=== PATIENT | female | born 1985 | race Caucasian/White ===

== ENCOUNTER 2018-07-28 08:53 | Day surgery (SDC) | payer OTHER ==
[2018-07-28] MEDS ORDERED: Propofol 10 mg/ml Inj (20 ML) ONE ×2 (10:48→10:57)
--- NOTE | 2018-07-28 10:50 | CP.SDSHP ---
Same Day Surgery H & P - History Proposed Procedure: EGD Pre-Op Diagnosis: SEE NOTES - Previous Medical/Surgical History Misc: Other Pain: 4.Moderate Pain - Allergies Allergies: Allergies No Known Allergies Allergy (Verified 07/28/18 09:39) - Physical Exam General Appearance: N Vital Signs: Vital Signs 07/28/18 09:30 Temperature 98.9 F Pulse Rate 70 Respiratory 19 Rate Blood Pressure 123/65 O2 Sat by Pulse 100 Oximetry Mental Status: Alert & Oriented x3 Neuro: WNL Heart: WNL Lungs: WNL GI: Other - {Optional Preform as Required} Breast: WNL Abdomen: Other Rectal: Other Integument: WNL : WNL Ortho: WNL ENT: WNL - Impression Pt. Evaluated Today:Candidate for Anesthesia & Procedure: Yes - Date & Time Time: 10:50 Short Stay Discharge - Short Stay Discharge Admitting Diagnosis/Reason for Visit: DYSPHAGIA, PHARYNGOESOPHAGEAL PHASE Disposition: HOME/ ROUTINE
[2018-07-28] MEDS ORDERED: Pantoprazole 40 mg EC Tab PO STA (10:59)
[2018-07-28] MEDS ORDERED: Belladonna-Phenobarbital PO STA (10:59)
[2018-07-28 12:34] VITALS: TEMP 98.4
[2018-07-28 12:35] VITALS: O2SAT 100
[2018-07-28 12:41] VITALS: BP 112/66; PULSE 65; RESP 15
== END 2018-07-28 12:30 | disposition home or self-care (01) ==
LOC: C.ENDO 08:53
PROVIDERS: ATTEND Specialist
DX: K29.50 Unspecified chronic gastritis without bleeding (principal); B96.81 Helicobacter pylori [H. pylori] as the cause of diseases classified elsewhere; R13.14 Dysphagia, pharyngoesophageal phase; K21.0 Gastro-esophageal reflux disease with esophagitis; K44.9 Diaphragmatic hernia without obstruction or gangrene; K29.80 Duodenitis without bleeding
CPT/HCPCS: 43239; 84703; 88305; 88342; J2704; J2765